=== PATIENT | female | born 1985 | race Caucasian/White ===

== ENCOUNTER 2019-04-30 15:04 | Emergency (ER) | payer SELFPAY ==
[2019-04-30 16:34] LABS: Absolute Lymphocytes (CBC) 2.8 K/uL (0.7-4.9); Basophils % 0.5 % (0-1.3); Eosinophils % 1.1 % (0-4.4); Hematocrit 40.5 % (36.0-45.0); Lymphocytes % 25.5 % (15.3-44.8); MPV 10.6 fL (7.6-11.3); Monocytes % 8.1 % (3.3-12.3); RBC Red Blood Cell Count 4.61 M/uL (3.86-4.86)
[2019-04-30 16:55] LABS: Urine Bacteria >50 /HPF (<20); Urine Culture Reflex Order REFLEXED; Urine RBC NONE SEEN /HPF (NONE SEEN)
[2019-04-30 16:57] LABS: Urine Blood NEGATIVE (NEG); Urine Glucose NEGATIVE (NEG); Urine Protein NEGATIVE (NEG); Urine pH 5.5 (5.0-7.0)
[2019-04-30 17:06] LABS: BUN Blood Urea Nitrogen 10 mg/dL (7-18); Bicarbonate 27 mmol/L (21-32); Glucose Level 84 mg/dL (74-106); HCG, Quantitative 18762 mIU/mL (1-3); Potassium 3.7 mmol/L (3.5-5.1); Sodium Level 140 mmol/L (136-145)
--- NOTE | 2019-04-30 18:09 | RAD REPORT ---
EXAM DESCRIPTION: US - Transvaginal OB - 04/30/2019 5:53 pm CLINICAL HISTORY: with pelvic pain COMPARISON: None. FINDINGS: The uterus is retroverted and measures 8 x 5 x 6 centimeters. A normal appearing gestatio nal sac is present within the endometrium. Within this is a yolk sac and pole with a crown-rump length 0.7 centimeters. Cardiac activity 113 beats per minute. 15 millimeter subchorionic bleed Right and left ovary appear normal. . An adnexal mass is not noted. No significant free fluid is seen. IMPRESSION: Single live intrauterine with an estimated gestational age 6 weeks 4 days MARLA 12/20/2019 Small subchorionic bleed
[2019-04-30] MEDS ORDERED: CEFTRIAXONE/SWI 1gm 1 GM/10 ML SYR ONE (19:24)
[2019-04-30] MEDS ORDERED: AZITHROMYCIN 250 MG TAB ONE (19:24)
--- NOTE | 2019-04-30 19:42 | ER ---
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 Transition of care: patient was not received from another setting of care. Onset of symptoms was April 30, 2019. Risk Assessment: Do you want to hurt yourself or someone else? Patient reports no desire to harm self or others. Initial Sepsis Screen: Does the patient meet any 2 criteria? No. Patient's initial sepsis screen is negative. Does the patient have a suspected source of infection? No. Patient's initial sepsis screen is negative. Care prior to arrival: None. 15:08 Method Of Arrival: Ambulatory 15:08 Acuity: JONI 3 Triage Assessment: 16:19 General: Appears in no apparent distress. Behavior is calm, cooperative. Pain: ls4 Complains of pain in abdomen Pain currently is 4 out of 10 on a pain scale. GI: Abdomen is non-distended, Bowel sounds present X 4 quads. Abd is soft and non tender X 4 quads. 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 Nutritional screening: No deficits noted. jb4 Tuberculosis screening: No symptoms or risk factors identified. Fall Risk IV access (20 points). Total Fisher Fall Scale indicates No Risk (0-24 pts). Assessment: 16:30 Reassessment: Patient appears in no apparent distress at this time. Patient and/or ls4 family updated on plan of care and expected duration. Pain level reassessed. Patient is alert, oriented x 3, equal unlabored respirations, skin warm/dry/pink. General: Appears in no apparent distress. comfortable. 17:35 Reassessment: ultrasound in room. ls4 19:00 Reassessment: Patient appears in no apparent distress at this time. Patient and/or jb4 family updated on plan of care and expected duration. Pain level reassessed. Patient is alert, oriented x 3, equal unlabored respirations, skin warm/dry/pink. 19:50 Reassessment: Patient appears in no apparent distress at this time. Patient and/or jb4 family updated on plan of care and expected duration. Pain level reassessed. Patient is alert, oriented x 3, equal unlabored respirations, skin warm/dry/pink. Pt left ambulatory, with steady gait belongings in hand and daughter with pt. verbalized understanding of d/c and follow up instructions, denies questions or concerns. Vital Signs: 15:13 BP 100 / 56; Pulse 75; Resp 18; Temp 98.2(O); Pulse Ox 99% on R/A; Weight 57.61 kg; hj Height 5 ft. 5 in. (165.10 cm); Pain 4/10; 16:00 BP 113 / 60; Pulse 68; Resp 15; Temp 97.9(TE); Pulse Ox 99% on R/A; mh5 17:35 BP 92 / 56; Pulse 58; Resp 15; Temp 98.0(O); Pulse Ox 100% on R/A; mh5 19:02 BP 99 / 65; Pulse 68; Resp 15; Temp 97.8(TE); Pulse Ox 100% on R/A; mh5 15:13 Body Mass Index 21.14 (57.61 kg, 165.10 cm) ED Course: 15:07 Patient arrived in ED. mr 15:07 None, None is Private Physician. mr 15:11 Triage completed. hj 15:12 Arm band placed on left wrist. hj 15:15 Patient has correct armband on for positive identification. Placed in gown. Bed in low mh5 position. Call light in reach. Side rails up X2. Warm blanket given. Pulse ox on. NIBP on. 15:22 Flaco Fernandez NP is PHCP. pm1 15:22 Dank Nicole MD is Attending Physician. pm1 15:43 Radiology exam delayed due to lab results not completed at this time. (HCG). aa4 16:08 Kim Castanon, RN is Primary Nurse. ls4 16:18 Quantitative Hcg Sent. ls4 16:18 Abo/rh Typing Sent. ls4 17:53 US Transvaginal Ob In Process Unspecified. EDMS 18:53 Assist provider with pelvic exam: Set up pelvic tray. Performed by Flaco Fernandez NP 5 Specimens sent to lab. Patient tolerated well. 19:04 PATIENT ISN'T WILLING TO KEEP O2 SAT MONITOR OR BLOOD PRESSURE CUFF ON. mh5 19:50 IV discontinued, intact, bleeding controlled, No redness/swelling at site. jb4 Administered Medications: 19:21 Drug: Rocephin 1 grams Route: IV; Rate: calculated rate; Site: right forearm; jb4 19:23 Follow up: Response: No adverse reaction; IV Status: Completed infusion; IV Intake: [id number] 19:21 Drug: Zithromax 1 grams Route: PO; jb4 19:56 Follow up: Response: No adverse reaction jb4 19:50 Drug: Fluconazole 150 mg Route: PO; jb4 19:56 Follow up: Response: Medication administered at discharge. jb4 Intake: 19:23 IV: 10ml; Total: 10ml. jb4 Outcome: 19:41 Discharge ordered by MD. pm1 19:50 Discharged to home ambulatory, with family. jb4 19:50 Condition: stable 19:50 Discharge instructions given to patient, Instructed on discharge instructions, follow up and referral plans. Demonstrated understanding of instructions, follow-up care. 20:00 Patient left the ED. 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 hj 5 in.; BMI: 21.1; Pain 4/10; hj
--- NOTE | 2019-04-30 19:43 | EDPHYS ---
Physician Documentation [facility] Name: Leslie Garcia Age: 33 yrs Sex: Female : 1985 Arrival Date: 04/30/2019 Time: 15:07 Bed 13 Private MD: None, None ED Physician Dank Nicole HPI: 04/30 15:39 This 33 yrs old Female presents to ER via Ambulatory with complaints of pm1 , vaginal pain. 15:39 The patient presents with Vaginal pain. Onset: The symptoms/episode began/occurred 1 pm1 week(s) ago. Modifying factors: The symptoms are alleviated by nothing, the symptoms are aggravated by nothing. Associated signs and symptoms: Pertinent negatives: constipation, diarrhea, dysuria, fever, vaginal bleeding, vomiting, patient uncertain if she has a change in vaginal discharge due to . Severity of symptoms: in the emergency department the symptoms are unchanged. The patient is sexually active, reportedly has a single partner. The patient's method of control includes nothing. The patient has not experienced similar symptoms in the past. The patient has not recently seen a physician. Patient with positive home test 3 days ago and she just discovered 's infidelity. 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 pm1 15:39 Constitutional: Negative for fever, chills, and weight loss, Eyes: Negative for injury, pain, redness, and discharge, ENT: Negative for injury, pain, and discharge, Neck: Negative for injury, pain, and swelling, Cardiovascular: Negative for chest pain, palpitations, and edema, Respiratory: Negative for shortness of breath, cough, wheezing, and pleuritic chest pain, Abdomen/GI: Negative for abdominal pain, nausea, vomiting, diarrhea, and constipation, Back: Negative for injury and pain. 15:39 MS/Extremity: Negative for injury and deformity, Skin: Negative for injury, rash, and discoloration. 15:39 Neuro: Negative for headache, weakness, numbness, tingling, and seizure. Exam: 15:39 Constitutional: This is a well developed, well nourished patient who is awake, alert, pm1 and in no acute distress. Head/Face: Normocephalic, atraumatic. Eyes: Pupils equal round and reactive to light, extra-ocular motions intact. Lids and lashes normal. Conjunctiva and sclera are non-icteric and not injected. Cornea within normal limits. Periorbital areas with no swelling, redness, or edema. ENT: Nares patent. No nasal discharge, no septal abnormalities noted. Tympanic membranes are normal and external auditory canals are clear. Oropharynx with no redness, swelling, or masses, exudates, or evidence of obstruction, uvula midline. Mucous membranes moist. Neck: Trachea midline, no thyromegaly or masses palpated, and no cervical lymphadenopathy. Supple, full range of motion without nuchal rigidity, or vertebral point tenderness. No Meningismus. Chest/axilla: Normal chest wall appearance and motion. Nontender with no deformity. No lesions are appreciated. Cardiovascular: Regular rate and rhythm with a normal S1 and S2. No gallops, murmurs, or rubs. Normal PMI, no JVD. No pulse deficits. Respiratory: Lungs have equal breath sounds bilaterally, clear to auscultation and percussion. No rales, rhonchi or wheezes noted. No increased work of breathing, no retractions or nasal flaring. Abdomen/GI: Soft, non-tender, with normal bowel sounds. No distension or tympany. No guarding or rebound. No evidence of tenderness throughout. Back: No spinal tenderness. No costovertebral tenderness. Full range of motion. Skin: Warm, dry with normal turgor. Normal color with no rashes, no lesions, and no evidence of cellulitis. MS/ Extremity: Pulses equal, no cyanosis. Neurovascular intact. Full, normal range of motion. 15:39 Neuro: Orientation: is normal, Motor: is normal, moves all fours, Sensation: is normal, no obvious gross deficits. 18:48 : Pelvic Exam: External exam: no appreciated Bartholin's cyst, no erythema, not pm1 excoriated, no evidence of foreign body, no lesions, no ulcerations, no warts seen, Speculum exam: no bleeding is noted, no cervicitis, os that is closed, no tissue in cervix is seen, no tissue in vagina is seen, bimanual exam reveals normal findings, no cervical motion tenderness, os that is closed, no uterine tenderness, Liat Tech. Sexual behavior: the patient is sexually active. Vital Signs: 15:13 BP 100 / 56; Pulse 75; Resp 18; Temp 98.2(O); Pulse Ox 99% on R/A; Weight 57.61 kg; hj Height 5 ft. 5 in. (165.10 cm); Pain 4/10; 16:00 BP 113 / 60; Pulse 68; Resp 15; Temp 97.9(TE); Pulse Ox 99% on R/A; mh5 17:35 BP 92 / 56; Pulse 58; Resp 15; Temp 98.0(O); Pulse Ox 100% on R/A; mh5 19:02 BP 99 / 65; Pulse 68; Resp 15; Temp 97.8(TE); Pulse Ox 100% on R/A; mh5 15:13 Body Mass Index 21.14 (57.61 kg, 165.10 cm) hj MDM: 15:22 Patient medically screened. pm1 15:47 Data reviewed: vital signs. Data interpreted: Pulse oximetry: on room air is 99 %. pm1 Interpretation: normal. 19:36 ED course: Patient does not want to wait for cervical swab results. pm1 19:36 Counseling: I had a detailed discussion with the patient and/or guardian regarding: the pm1 historical points, exam findings, and any diagnostic results supporting the discharge/admit diagnosis, lab results, radiology results, the need for outpatient follow up, for definitive care, an OB/Gyne specialist, to return to the emergency department if symptoms worsen or persist or if there are any questions or concerns that arise at home. 04/30 15:31 Order name: Quantitative Hcg pm04/30 15:31 Order name: Abo/rh Typing pm04/30 15:31 Order name: Basic Metabolic Panel; Complete Time: 18:21 pm04/30 15:31 Order name: CBC with Diff; Complete Time: 18:21 pm1 04/30 15:31 Order name: GC (GONORR/CHLAMYDIA) Probe pm04/30 15:31 Order name: Wet Prep; Complete Time: 01:55 pm1 04/30 15:31 Order name: US Transvaginal Ob; Complete Time: 18:21 pm1 04/30 15:31 Order name: Urine Microscopic Only; Complete Time: 18:21 pm1 04/30 15:31 Order name: HCG, Quantitative; Complete Time: 18:21 EDNM 04/30 15:31 Order name: ABO/RH typing; Complete Time: 18:21 EDMS 04/30 16:52 Order name: Urine Dipstick--Ancillary (enter results); Complete Time: 18:21 ag 04/30 16:52 Order name: Urine --Ancillary (enter results); Complete Time: 18:21 ag 04/30 16:58 Order name: Urine Culture EDNM 04/30 15:31 Order name: Urine Test (obtain specimen); Complete Time: 16:18 pm1 04/30 15:31 Order name: IV Saline Lock; Complete Time: 16:18 pm1 04/30 15:31 Order name: Labs collected and sent; Complete Time: 16:18 pm1 04/30 15:31 Order name: NPO; Complete Time: 16:18 pm1 04/30 15:31 Order name: Urine Dipstick-Ancillary (obtain specimen); Complete Time: 16:18 pm1 Administered Medications: 19:21 Drug: Rocephin 1 grams Route: IV; Rate: calculated rate; Site: right forearm; jb4 19:23 Follow up: Response: No adverse reaction; IV Status: Completed infusion; IV Intake: [id number] 19:21 Drug: Zithromax 1 grams Route: PO; 4 19:56 Follow up: Response: No adverse reaction jb4 19:50 Drug: Fluconazole 150 mg Route: PO; jb4 19:56 Follow up: Response: Medication administered at discharge. jb4 Disposition: 05/01 07:00 Co-signature as Attending Physician, Dank Nicole MD I agree with the assessment and wa plan of care. Disposition: 04/30/19 19:41 Discharged to Home. Impression: Candidiasis of vulva and vagina. - Condition is Stable. - Discharge Instructions: Vaginitis. - Medication Reconciliation Form, Thank You Letter, Antibiotic Education, Prescription Opioid Use form. - Follow up: Emergency Department; When: As needed; Reason: Worsening of condition. Follow up: Private Physician; When: 2 - 3 days; Reason: Recheck today's complaints, Continuance of care, Re-evaluation by your physician. - Problem is new. - Symptoms have improved. Signatures: Dispatcher [employer] EDMS Uli Moncada, RN RN hj Flaco Fernandez, MILLWRIGHT SUPERVISOR MILLWRIGHT SUPERVISOR pm1 Theodore Dominguez RN RN jb4 Dank Nicole MD MD wa Corrections: (The following items were deleted from the chart) 04/30 20:00 19:41 04/30/2019 19:41 Discharged to Home. Impression: Candidiasis of vulva and vagina. jb4 Condition is Stable. Forms are Medication Reconciliation Form, Thank You Letter, Antibiotic Education, Prescription Opioid Use. Follow up: Emergency Department; When: As needed; Reason: Worsening of condition. Follow up: Private Physician; When: 2 - 3 days; Reason: Recheck today's complaints, Continuance of care, Re-evaluation by your physician. Problem is new. Symptoms have improved. pm1
[2019-04-30] MEDS ORDERED: FLUCONAZOLE 100 MG TAB ONE (20:02)
== END 2019-04-30 20:00 | disposition home or self-care (01) ==
LOC: ER 15:04
DX: O98.811 Other maternal infectious and parasitic diseases complicating pregnancy, first trimester (principal); Z3A.01 Less than 8 weeks gestation of pregnancy
CPT/HCPCS: 36415; 76817; 80048; 81003; 81015; 81025; 84702; 85025; 86900; 86901; 87086; 87088; 87210; 87490; 87590; J0696